=== PATIENT | male | born 1990 | race Caucasian/White ===

== ENCOUNTER 2023-04-10 11:49 | Outpatient (CLI) | payer OTHER, SELFPAY ==
[2023-04-10 14:03] LABS: Strep A DNA Probe* NOT DETECTED (Not Detectd)
[2023-04-10 14:06] LABS: SARS PCR* Negative SARS-CoV-2 (Negative)
== END 2023-04-10 11:50 | disposition home or self-care (01) ==
PROVIDERS: PCP Nurse Practitioner Family; Visit Provider Nurse Practitioner Family
DX: J02.9 Acute pharyngitis, unspecified (principal); Z11.52 Encounter for screening for COVID-19
CPT/HCPCS: 87635; 87651